=== PATIENT | female | born 1975 | race African-American/Black ===

== ENCOUNTER → 2018-03-29 06:28 | Outpatient (CLI) | payer OTHER ==
[2015-05-04 07:00] VITALS: BMI 25.0
[~2018-03-29 06:28] MED LIST: FERREX 150 FO1 UDCAP PO; FISH OIL 1,0001 CA1 PO; HYDROCODONE-APA1 TAB PO; LINZESS145 MCG PO; MULTIPLE VITAMI1 TA1 PO; VITAMIN D31000 UNI2 PO; [UNRECOGNIZED DRUG - REMARK]
== END | disposition home or self-care (01) ==
LOC: D.MAMMO 06:28
DX: Z12.31 Encounter for screening mammogram for malignant neoplasm of breast (principal)

== ENCOUNTER 2018-04-04 07:25 | Day surgery (SDC) | payer OTHER ==
[2018-04-03 14:40] LABS: BASOPHILS 0 % (0-2); EOSINOPHILS 1.9 % (0-7); HEMATOCRIT 39.1 % (36.0-48.0); HEMOGLOBIN 13.2 g/dL (12-16); LYMPHOCYTES 27.2 % (15-50); MCH 30.7 pg (26.0-34.0); MCHC 33.8 g/dL (31.0-37.0); MCV 90.9 fL (80.0-100.0); MEAN PLATELET VOLUME 9.3 fL (7.4-10.4); MONOCYTES 9.3 % (2-11); NEUTROPHILS 61.6 % (40-80); PLATELET COUNT 204 10x3/uL (130-400); RDW 13.4 % (11.5-14.5); WBC 3.8 10x3/uL (4.8-10.8)
--- NOTE | ~2018-04-04 | OP ---
PATIENT NAME: BRIANA SPARKS MEDICAL RECORD: [id number] :77 LOCATION:D.OPS ADMISSION DATE: SURGEON: GAEL ROSADO MD DATE OF OPERATION: 04/04/2018 PREOPERATIVE DIAGNOSES: 1. Endometrial thickening on ultrasound. 2. Endometrial polyps. POSTOPERATIVE DIAGNOSES: 1. Endometrial thickening on ultrasound. 2. Endometrial polyps. PROCEDURES: Hysteroscopy, D and C. SURGEON: Gael Rosado MD ANESTHESIA: General by LMA. INTRAVENOUS FLUIDS: Per anesthesia record. HYSTEROSCOPIC FLUID LOSS: Approximately 100 cc of 0.9 normal saline. SPECIMENS: Endometrial curettings. FINDINGS: 1. Endometrial cavity with some distortion from uterine fibroids. 2. Small endometrial polyps noted. PROCEDURE IN DETAIL: The patient was taken to the operating room where general anesthesia was achieved without any difficulty, the patient was then prepped and draped in normal sterile fashion in the dorsal lithotomy position in the [facility]. At this point, the bladder was drained of approximately 50 cc of clear yellow urine. A Graves speculum was then placed in the vagina. The cervix was identified and grasped on its anterior lip with a single tooth tenaculum. Uterus sounded to approximately 10.5 cm, at this point, dilation to approximately 6 mm was performed and the hysteroscope was introduced into the uterine cavity. Several small polyps were noted at the internal os and a larger polyp was noted on the posterior fundal region near the left cornua. Hysteroscopic scissors were then used to remove this polyp at its base and then following removal of the fundal polyp, curettage was performed of all 4 quadrants. The hysteroscope was then replaced and all polyps were found to have been removed. The single tooth tenaculum was then removed followed by the speculum. The patient tolerated the procedure well and was transferred to postanesthesia recovery stable without incident. TRANSINT:[id number] Voice Confirmation ID: [id number] DOCUMENT ID: [id number] OPERATIVE REPORT [id number] BRIANA SPARKS GAEL ROSADO MD at 1844 CC: [id number] DICTATION DATE: 04/19/182053 AURICULAR DETOXIFICATION SPECIALIST: [id number]/19/[id number] [facility] 04/04/18 [place] [id number]
[2018-04-04 09:13] VITALS: BP 121/77; BMI 24.5
[2018-04-04 09:20] LABS: HCG URINE NEGATIVE (NEGATIVE)
== END 2018-04-04 12:20 | disposition home or self-care (01) ==
LOC: D.OPS 07:25 → D.PAN 08:30 → D.OPS 08:30 → D.PAN 09:30 → D.OPS 09:30
PROVIDERS: Obstetrics & Gynecology
DX: N84.0 Polyp of corpus uteri (principal); R93.8 Abnormal findings on diagnostic imaging of other specified body structures; Z01.812 Encounter for preprocedural laboratory examination

== ENCOUNTER 2021-01-31 16:10 | Outpatient (CLI) | payer OTHER | END 2021-01-31 23:59 | disposition home or self-care (01) | LOC: D.MAMMO 16:10 | PROVIDERS: ATTEND Family Medicine | DX: Z12.31 Encounter for screening mammogram for malignant neoplasm of breast (principal) ==